=== PATIENT | female | born 1985 | race Caucasian/White ===

== ENCOUNTER 2022-03-21 14:16 | Outpatient (REF) | payer OTHER, SELFPAY ==
--- NOTE | ~2022-03-21 | XR_ITS ---
EXAMINATION: XR LUMBOSACRAL SPINE CLINICAL INFORMATION: Neck and back pain COMPARISON: None TECHNIQUE: Three views of the lumbosacral spine. FINDINGS: The vertebral bodies and posterior elements are normal. The disc spaces are preserved and the vertebral alignment is normal. The paraspinal soft tissues are normal. XR/XR lumbar spine 2-3V IMPRESSION: Unremarkable examination.
--- NOTE | ~2022-03-21 | XR_ITS ---
EXAMINATION: XR THORACIC SPINE CLINICAL INFORMATION: Neck and back pain COMPARISON: None TECHNIQUE: 3 views of the thoracic spine were obtained. FINDINGS: There is no fracture or bone destruction seen and the vertebral alignment is normal. There is no disc space narrowing. There is no abnormality of the paraspinal soft tissues. XR/XR thoracic spine 3V IMPRESSION: Unremarkable examination.
--- NOTE | ~2022-03-21 | XR_ITS ---
EXAMINATION: XR CERVICAL SPINE CLINICAL INFORMATION: Neck and back pain COMPARISON: None TECHNIQUE: 3 views of the cervical spine were obtained. FINDINGS: No fracture. No dislocation. There is reversal of the normal cervical lordosis. Mild loss of disc height with anterior osteophytosis C4-C5, C5-C6, and C6-C7. Normal prevertebral soft tissues. Lung apices clear. XR/XR cervical spine 3V IMPRESSION: Reversal of the normal cervical lordosis with multilevel degenerative disc disease.
[2022-03-21 15:36] LABS: Erythrocyte Sedimentation Rate 17 MM/HR (0-20)
== END 2022-03-21 14:17 | disposition home or self-care (01) ==
LOC: HO.LAB 14:16
PROVIDERS: PCP Internal Medicine; Visit Provider Internal Medicine
DX: M54.2 Cervicalgia (principal); M54.9 Dorsalgia, unspecified; V89.2XXD Person injured in unspecified motor-vehicle accident, traffic, subsequent encounter
CPT/HCPCS: 36415; 72040; 72072; 72100; 82550; 85652; 86140

== ENCOUNTER 2022-10-12 12:11 | Outpatient (REF) | payer OTHER, SELFPAY ==
[2022-10-12 13:30] LABS: MANUAL DIFF FLAG NO
[2022-10-12 13:39] LABS: Basophils Percent Auto 0.5 % (0-2); Eosinophils Absolute Auto 0.3 X10*3/uL (0.0-0.4); Eosinophils Percent Auto 4.1 % (0-4); Hematocrit 39.8 % (37.0-47.0); Hemoglobin 12.6 g/dl (12.0-16.0); Imm Gran Abs Auto 0.02 X10*3/uL (0.00-0.03); Imm Gran Pct Auto 0.2 % (0.0-0.4); Lymphocytes Absolute Auto 2.6 X10*3/uL (1.2-4.9); Lymphocytes Percent Auto 32.7 % (20-40); Mean Corpuscular HGB Conc 31.7 g/dl (31.0-35.0); Mean Corpuscular Volume 82.2 fL (80.0-98.0); Mean Platelet Volume 11.1 fL (9.4-12.3); Monocytes Absolute Auto 0.5 X10*3/uL (0.1-1.2); Monocytes Percent Auto 5.9 % (2-11); Neutrophils Absolute Auto 4.6 x10*3/uL (2.0-8.3); Neutrophils Percent Auto 56.6 % (45-73); Platelet Count 391 X10*3/uL (160-400); Red Blood Count 4.84 X10*6/uL (4.20-5.50); Red Cell Distribution Width 16.5 % (11.0-16.0); White Blood Count 8.1 X10*3/uL (4.8-10.8)
[2022-10-12 13:54] LABS: Rheumatoid Factor < 13.0 IU/mL (<15.0)
[2022-10-12 13:57] LABS: Alanine Aminotransferase 16 U/L (0-31); Albumin Level 4.2 g/dL (3.5-5.0); Alkaline Phosphatase 89 U/L (39-117); Anion Gap 13 (12-20); Aspartate Amino Transferase 16 U/L (5-31); Bilirubin Total 0.4 mg/dL (0.0-1.0); Blood Urea Nitrogen 14 mg/dL (9-16); Calcium 9.3 mg/dL (8.4-10.2); Carbon Dioxide 27 mmol/L (22-29); Chloride 105 mmol/L (96-108); Cholesterol 223 mg/dL; Estimated Glomerular Filt Rate > 60; Glucose Random 87 mg/dL (60-115); Potassium 3.9 mmol/L (3.3-5.1); Sodium 141 mmol/L (135-145); Total Protein 7.5 g/dL (6.5-8.0)
[2022-10-12 14:12] LABS: Vitamin D 25-OH Total 66.1 ng/mL (>30)
[2022-10-17 15:18] LABS: Anti Nuclear Antibody Screen NEGATIVE (NEGATIVE)
== END 2022-10-12 12:12 | disposition home or self-care (01) ==
LOC: HO.10HDL 12:11
PROVIDERS: Visit Provider Internal Medicine
DX: N18.9 Chronic kidney disease, unspecified (principal); J45.909 Unspecified asthma, uncomplicated; F98.8 Other specified behavioral and emotional disorders with onset usually occurring in childhood and adolescence; M25.50 Pain in unspecified joint
CPT/HCPCS: 36415; 80053; 82306; 82465; 85025; 86038; 86431

== ENCOUNTER 2024-05-23 10:44 | Outpatient (AMB) | payer OTHER, SELFPAY ==
[2024-05-23 10:50] VITALS: BP 126/88; PULSE 92; RESP 14; TEMP 36.6; O2SAT 98; BMI 38.4
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
--- OUTSIDE RECORDS SUMMARY | 2024-05-23 12:33 | XMS_ITS | Clinical Summary ---
Author Organization [facility] Address [address] [place] [phone] Phone Care Team Providers Care Piece Maker Name Role Phone Gustabo Weldon MD Primary Care Provider [phone] Allergies Active Allergy Reactions Criticality Noted Date Comments Aspirin Wheezing Medium 01/30/2024 Medications No known medications Active Problems No known active problems Social History Tobacco Use Types Packs/Day Years Used Date Smoking Tobacco: Never Smokeless Tobacco: Never Alcohol Use Standard Drinks/Week Comments Never 0 (1 standard drink = 0.6 oz pur e alcohol) Comments Unknown Sex and Gender Information Value Date Recorded Sex Assigned at Female 01/30/2024 6:09 PM EST Legal Sex Female 12:03 AM EST Gender Identity Female 01/30/2024 6:09 PM EST Sexual Orientation Not on file Obstetrics History Last Filed Vital Signs Vital Sign Reading Time Taken Comments Blood Pressure 144/97 01/30/2024 7:23 PM EST Pulse 92 01/30/2024 7:23 PM EST Temperature 37.6 ??C (99.7 ??F) 01/30/2024 5:33 PM ES T Respiratory Rate 18 01/30/2024 7:23 PM EST Oxygen Saturation 98% 01/30/2024 7:23 PM EST Inhaled Oxygen Concentration - - Weight 90.7 kg (200 lb) 01/30/2024 5:33 PM EST Height 157.5 cm (5' 2 ) 01/30/2024 5:33 PM EST Body Mass Index 36.58 01/30/2024 5:33 PM EST Plan of Treatment Health Maintenance Due Date Last Done Comments DTaP,Tdap,and Td Vaccines (1 - Tdap) 08/31/2003 Hepatitis B Vaccines (1 of 3 - 19+ 3-dose series) 08/31/2003 Cervical Cancer Screening: P ap Smear 2005 Depression Screening 02/06/2022 HIV Screening 02/06/2022 Hepatitis C Screening 02/06/2022 Medicare Annual Wellness Visit 02/06/2022 Social Influencers of Health Screening 02/06/2022 COVID-19 Vaccine (4 - 2023-2 5 season) 2023 01/25/2021, 06/10/2020, 05/12/2020 Influenza Vaccine (#1) 2023 , 01/12/2017 HIB Vaccines Aged Out No longer eligi ble based on patient's age to complete this topic HPV Vaccines Aged Out No longer eligi ble based on patient's age to complete this topic Hepatitis A Vaccines Aged Out No long er eligible based on patient's age to complete this topic IPV Vaccines Aged Out No longer eligi ble based on patient's age to complete this topic MMR Vaccines Aged Out No longer eligi ble based on patient's age to complete this topic Meningococcal ACWY Vaccine Aged Out N o longer eligible based on patient's age to complete this topic Meningococcal B Vacine Aged Out No lo nger eligible based on patient's age to complete this topic Pneumococcal Vaccine: Pediatrics (0 to 5 Years) and At-Risk Patients (6 to 64 Years) Aged Out No longer eligible b ased on patient's age to complete this topic RSV Immunization Patients Under 20 months Aged Out No longer eligible b ased on patient's age to complete this topic Varicella Vaccines Aged Out No longer eligible based on patient's age to complete this topic Additional Health Concerns Infection Onset Date Last Indicated Mycoplasma 01/30/2024 01/30/2024 Insurance [place]ICA[place] - [place] [employer] MEDICARE Care Teams Piece Maker Relationship Specialty Start Date End Date Gustabo Weldon MD [address] [place] [address] Dr Stefany [place] PCP - General Internal Medicine 10/27/20
== END 2024-05-23 11:13 | disposition home or self-care (01) ==
LOC: HO.HMCHD 10:44
PROVIDERS: PCP Internal Medicine; Visit Provider Internal Medicine
DX: F33.41 Major depressive disorder, recurrent, in partial remission (principal); R41.840 Attention and concentration deficit

== ENCOUNTER 2024-05-23 11:18 | Outpatient (REF) | payer MEDICARE, MEDICAID, SELFPAY ==
[2024-05-23 11:37] LABS: MANUAL DIFF FLAG NO
[2024-05-23 11:41] LABS: Basophils Absolute Auto 0.1 X10*3/uL (0.0-0.2); Eosinophils Absolute Auto 0.3 X10*3/uL (0.0-0.4); Eosinophils Percent Auto 4.4 % (0-4); Hematocrit 35.9 % (37.0-47.0); Hemoglobin 11.9 g/dl (12.0-16.0); Imm Gran Abs Auto 0.01 X10*3/uL (0.00-0.03); Imm Gran Pct Auto 0.2 % (0.0-0.4); Lymphocytes Absolute Auto 2.1 X10*3/uL (1.2-4.9); Mean Corpuscular HGB Conc 33.1 g/dl (31.0-35.0); Mean Corpuscular Hemoglobin 26.3 pg (27.0-33.0); Mean Corpuscular Volume 79.2 fL (80.0-98.0); Mean Platelet Volume 9.8 fL (9.4-12.3); Monocytes Absolute Auto 0.4 X10*3/uL (0.1-1.2); Monocytes Percent Auto 5.9 % (2-11); Neutrophils Absolute Auto 3.3 x10*3/uL (2.0-8.3); Neutrophils Percent Auto 54.5 % (45-73); Platelet Count 336 X10*3/uL (160-400); Red Blood Count 4.53 X10*6/uL (4.20-5.50); Red Cell Distribution Width 15.9 % (11.0-16.0); White Blood Count 6.1 X10*3/uL (4.8-10.8)
[2024-05-23 11:53] LABS: Estimated Average Glucose 108 mg/dL; Hemoglobin A1c % 5.4 % (<6.0)
[2024-05-23 12:21] LABS: Rheumatoid Factor < 13.0 IU/mL (<15.0)
[2024-05-23 12:26] LABS: Erythrocyte Sedimentation Rate 13 MM/HR (0-20)
[2024-05-23 12:33] LABS: Alanine Aminotransferase 21 U/L (0-31); Alkaline Phosphatase 85 U/L (39-117); Anion Gap 11 (12-20); Aspartate Amino Transferase 18 U/L (5-31); Bilirubin Total 0.2 mg/dL (0.0-1.0); Blood Urea Nitrogen 16 mg/dL (9-16); Calcium 8.8 mg/dL (8.4-10.2); Carbon Dioxide 27 mmol/L (22-29); Chloride 105 mmol/L (96-108); Estimated Glomerular Filt Rate > 60; Glucose Random 91 mg/dL (60-115); Iron 24 mcg/dL (30-160); Percent Iron Saturation 6 % (15-50); Potassium 3.6 mmol/L (3.3-5.1); Sodium 139 mmol/L (135-145); Total Iron Binding Capacity 376 mcg/dL (228-428); Total Protein 7.5 g/dL (6.5-8.0); Unsaturated Iron Binding 352 ug/dL
[2024-05-23 12:44] LABS: Vitamin B12 563 pg/mL (200-900)
[2024-05-24 19:09] LABS: Lyme Abs Screen <0.90 index
[2024-05-26 19:33] LABS: Cyclic Citrullinated Peptide <16 UNITS
[2024-05-27 11:04] LABS: Anti Nuclear Antibody Screen NEGATIVE (NEGATIVE)
[2024-05-28 16:08] LABS: Vitamin D 25-OH, D2 <4 ng/mL; Vitamin D 25-OH, D3 33 ng/mL; Vitamin D 25-OH, Total 33 ng/mL (30-100)
== END 2024-05-23 11:19 | disposition home or self-care (01) ==
LOC: HO.10HDL 11:18
PROVIDERS: Visit Provider Internal Medicine
DX: F33.41 Major depressive disorder, recurrent, in partial remission (principal); F41.9 Anxiety disorder, unspecified; F98.8 Other specified behavioral and emotional disorders with onset usually occurring in childhood and adolescence; R41.840 Attention and concentration deficit; R53.83 Other fatigue; M25.50 Pain in unspecified joint; L65.9 Nonscarring hair loss, unspecified; M79.10 Myalgia, unspecified site; Z79.899 Other long term (current) drug therapy
CPT/HCPCS: 36415; 80053; 82306; 82607; 83036; 83540; 85025; 85652; 86038; 86200; 86431; 86617; 86618; 99202

== ENCOUNTER 2024-08-05 11:45 | Outpatient (AMB) | payer MEDICARE, SELFPAY ==
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
[2024-08-05 11:50] VITALS: PULSE 97; RESP 16; TEMP 36.3; O2SAT 99; BMI 38.2
--- OUTSIDE RECORDS SUMMARY | 2024-08-05 13:00 | XMS_ITS | Clinical Summary ---
Author Organization [facility] Address [address] [place] [phone] Phone Care Team Providers Care Veterans' Counselor Name Role Phone Gustabo Weldon MD Primary Care Provider [phone] Allergies Active Allergy Reactions Criticality Noted Date [...] season) 2023 01/25/2021, 06/10/2020, 05/12/2020 Influenza Vaccine (Season Ended) 2024 01/07/2020, 01/12/2017 HIB Vaccines Aged Out No longer [...] age to complete this topic Meningococcal B Vaccine Aged Out No l onger eligible based on patient's age to complete [...] - [place] [employer] [place] Care Teams Veterans' Counselor Relationship Specialty Start Date End Date Gustabo Weldon MD [address] [place] [address] Dr Stefany MA PCP - General Internal Medicine 10/27/20
== END 2024-08-05 12:29 | disposition home or self-care (01) ==
LOC: HO.HMCHD 11:46
PROVIDERS: PCP Internal Medicine; Visit Provider Physician Assistant
DX: M54.2 Cervicalgia (principal); M54.9 Dorsalgia, unspecified; G89.29 Other chronic pain; R51.9 Headache, unspecified; E04.1 Nontoxic single thyroid nodule

== ENCOUNTER → 2024-08-05 11:45 | Outpatient (BNVA) | payer MEDICARE, SELFPAY | PROVIDERS: PCP Internal Medicine; Visit Provider Physician Assistant | DX: Z13.89 Encounter for screening for other disorder (principal) | CPT/HCPCS: 99212 ==

== ENCOUNTER 2024-08-05 12:34 | Outpatient (REF) | payer MEDICARE, SELFPAY ==
[2024-08-05 13:53] LABS: TSH reflex Free T4 3.69 uIU/mL (0.32-4.0)
== END 2024-08-05 12:35 | disposition home or self-care (01) ==
LOC: HO.10HDL 12:34
PROVIDERS: Visit Provider Physician Assistant
DX: E04.1 Nontoxic single thyroid nodule (principal)
CPT/HCPCS: 36415; 84443; 99212

== ENCOUNTER 2024-08-26 14:17 | Outpatient (AMB) | payer MEDICARE, SELFPAY ==
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
[2024-08-26 14:27] VITALS: BP 128/90; PULSE 96; RESP 16; TEMP 36.4; O2SAT 99; BMI 38.2
--- OUTSIDE RECORDS SUMMARY | 2024-08-26 15:51 | XMS_ITS | Clinical Summary ---
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
== END 2024-08-26 14:44 | disposition home or self-care (01) ==
LOC: HO.HMCHD 14:18
PROVIDERS: PCP Internal Medicine; Visit Provider Physician Assistant
DX: M54.2 Cervicalgia (principal)

== ENCOUNTER → 2024-08-26 14:17 | Outpatient (BNVA) | payer MEDICARE, SELFPAY | PROVIDERS: PCP Internal Medicine; Visit Provider Physician Assistant | DX: M54.2 Cervicalgia (principal); G89.29 Other chronic pain | CPT/HCPCS: 99212 ==

== ENCOUNTER 2024-09-05 16:00 | Outpatient (REF) | payer MEDICARE, SELFPAY ==
--- NOTE | ~2024-09-05 | US_ITS ---
EXAMINATION: US THYROID CLINICAL INFORMATION: Nontoxic single thyroid nodule COMPARISON: Ultrasound thyroid soft tissue neck 03/02/2015 TECHNIQUE: Linear transducer grayscale and color Doppler examination with attention to the region of the thyroid. FINDINGS: SIZE: Measurements of the thyroid lobes and nodules are given in sagittal, anteroposterior and transverse dimensions respectively. Right Thyroid Lobe: 3.7 x 1.2 x 1.3 cm, volume 2.9 mL. Previously measured 4.3 x 1.0 x 1.3 cm and volume 3.1 mL. Parenchyma: The gland echotexture is normal. Thyroid vascularity is normal. Left Thyroid Lobe: 4.0 x 1.3 x 1.3 cm, volume 3.5 mL. Previously measured 3.9 x 1.1 x 1.4 cm in volume 3.0 mL Parenchyma: The gland echotexture is normal. Thyroid vascularity is normal. Isthmus: 0.3 cm in maximum AP dimension. Previously measured 0.3 cm Estimated total number of nodules greater than or equal to 1 cm: None. Patrol Commander nodules are described as follows: 1. Location: Right mid pole. Size: 1.2 x 0.7 x 1.3 cm, volume 0.5 mL. Previous measurement 0.8 x 0.5 x 0.8 cm. Nodule characteristics: Composition: Solid (2). Echogenicity: Isoechoic (1). Shape: Wider Margins: Ill-defined (0). Echogenic Foci: Macrocalcification. ACR TI-RADS total points: 4 ACR TI-RADS category: 4 NODES: No lymphadenopathy is seen in the tissue surrounding the thyroid gland. US/US thyroid IMPRESSION: Solitary solid nodule right middle lobe increased in size since 2014. Based on ACR criteria recommend follow-up in 1 year. There are no new nodules. ACR TI-RADS RECOMMENDATION REFERENCE: Ultrasound-guided fine-needle aspiration, followup ultrasound, no further follow up. * TR1 (0 point) and TR2 (2 points): No FNA or follow up. * TR3 (3 points): FNA if more than or equal to 2.5 cm in maximum dimension, followup ultrasound in 1, 3 and 5 years if 1.5 to 2.4 cm in maximum dimension. * TR4 (4-6 points): FNA if more than or equal to 1.5 cm in maximum dimension, followup ultrasound in 1, 2, 3 and 5 years if 1 to 1.4 cm in maximum dimension. * TR5 (more than or equal to 7 points): FNA if more than or equal to 1 cm in maximum dimension, followup ultrasound every year for 5 years if 0.5 to 0.9 cm in maximum dimension. * TR3, TR4 or TR5 nodules that are below the size threshold for followup receive no follow up. Electronically signed by: Desmond Quinn MD 09/09/2024 07:45 AM EDT
--- OUTSIDE RECORDS SUMMARY | 2024-09-05 16:01 | XMS_ITS | Clinical Summary ---
Author Organization [facility] Address [address] [place] [id number] Phone Care Team Providers Care Rubber Washer Name Role Phone Gustabo Weldon MD Primary Care Provider [phone] Allergies Active Allergy Reactions Criticality Noted Date [...] Health Maintenance Due Date Last Done Comments Breast Cancer Screening 1984 DTaP,Tdap,and Td Vaccines (1 - Tdap) 08/31/2003 [...] - [place] [employer] [place] Care Teams Rubber Washer Relationship Specialty Start Date End Date Gustabo Weldon MD [address] [place] [address] Dr Stefany MA PCP - General Internal Medicine 10/27/20
== END 2024-09-05 16:01 | disposition home or self-care (01) ==
LOC: HO.US 16:00
PROVIDERS: PCP Internal Medicine; Visit Provider Physician Assistant
DX: E04.1 Nontoxic single thyroid nodule (principal)
CPT/HCPCS: 76536

== ENCOUNTER → 2024-09-05 16:01 | Outpatient (BNV) | payer MEDICARE, SELFPAY | PROVIDERS: PCP Internal Medicine; Visit Provider Radiology Diagnostic Radiology | DX: E04.1 Nontoxic single thyroid nodule (principal) | CPT/HCPCS: 76536 ==

== ENCOUNTER 2025-02-06 10:48 | Outpatient (AMB) | payer MEDICARE, SELFPAY ==
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
[2025-02-06 10:57] VITALS: BP 116/74; BMI 37.5
--- OUTSIDE RECORDS SUMMARY | 2025-02-06 13:34 | XMS_ITS ---
Author Name [facility] Organization Unknown Encounters Encounter Type Encounter Reason Primary Diagnosis Location Date [facility] Care Team Organization Name Specialty Phone Email Start Date End [facility]
--- OUTSIDE RECORDS SUMMARY | 2025-02-06 13:34 | XMS_ITS | Clinical Summary ---
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 [address] [place] [address] Acute pharyngitis, unspecified etiology (Primary Dx); Upper respiratory tract infection, unspecified type Discharge Disposition: Home or Self Care from Last 3 Months Medical History Medical History Date Comments Depression Anxiety Chronic pain Social History Tobacco Use Types Packs/Day Years [...] Sign Reading Time Taken Comments Blood Pressure 132/77 12/31/2024 10:29 AM EDT Pulse 103 12/31/2024 10:29 AM EDT Temperature 37.3 C (99.1 F) 12/31/2024 10:29 AM EDT Respiratory Rate 18 12/31/2024 10:29 AM EDT Oxygen Saturation 99% 12/31/2024 10:29 AM EDT Inhaled Oxygen Concentration - - Weight 90.7 kg (200 lb) 12/31/2024 10:29 AM EDT Height 157.5 cm (5' 2 ) 12/31/2024 10:29 AM EDT Body Mass Index 36.58 12/31/2024 10:29 AM EDT Plan of Treatment Health Maintenance Due Date Last Done Comments Breast Cancer Screening 1984 DTaP,Tdap,and Td Vaccines (1 - Tdap) 08/31/2003 Hepatitis B Vaccines (1 of 3 - 19+ 3-dose series) 08/31/2003 Cervical Cancer Screening: P ap Smear 2005 HPV Vaccines (1 - 3-dose SCD M series) 08/31/2011 HIV Screening 02/06/2022 Hepatitis C Screening 02/06/2022 Social Influencers of Health Screening 02/06/2022 Depression Screening 03/06/2024 COVID-19 Vaccine (4 - 2024-2 6 season) 2024 01/25/2021, 06/10/2020, 05/12/2020 Influenza Vaccine (#1) 2024 , 01/12/2017 RSV Immunization Adult Patients (1 - 1-dose 75+ series) 08/31/2059 HIB Vaccines Aged Out No longer eligi [...] 5 Years) and At-Risk Patients (6 to 49 Years) Aged Out No longer eligible b ased on patient's age to complete this topic RSV Immunization Patients Under 20 months Aged Out No longer eligible b ased on patient's age to complete this topic Varicella Vaccines Aged Out No longer eligible based on patient's age to complete this topic Procedures Procedure Name Priority Date/Time Associated Diagnosis Comments CULTURE THROAT STAT 12/31/2024 11:04 AM EDT RAPID STREP A SCREEN STAT 12/31/2024 11:04 AM EDT RESPIRATORY VIRUS PANEL MOLECULAR STUDY STAT 12/31/2024 11:04 AM EDT from Last 3 Months Results * Respiratory virus panel molecular study (12/31/2024 11:04 AM EDT) Pathologist [facility] Adenovirus Detection by PCR Not Detected Not Detected LAB MICROBIOLOGY METHOD 12/31/2024 12:42 PM EDT [facility] Influenza A PCR Not Detected Not Detected LAB MICROBIOLOGY METHOD 12/31/2024 12:42 PM EDT [facility] Influenza B PCR Not Detected Not Detected LAB MICROBIOLOGY METHOD 12/31/2024 12:42 PM EDT [facility] Coronavirus 229E Not Detected Not Detected LAB MICROBIOLOGY METHOD 12/31/2024 12:42 PM EDT [facility] Coronavirus HKU1 Not Detected Not Detected LAB MICROBIOLOGY METHOD 12/31/2024 12:42 PM EDT [facility] Coronavirus OC43 Not Detected Not Detected LAB MICROBIOLOGY METHOD 12/31/2024 12:42 PM EDT [facility] Coronavirus NL63 Not Detected Not Detected LAB MICROBIOLOGY METHOD 12/31/2024 12:42 PM EDT [facility] Parainfluenza Virus 1 Not Detected Not Detected LAB MICROBIOLOGY METHOD 12/31/2024 12:42 PM EDT [facility] Parainfluenza Virus 2 Not Detected Not Detected LAB MICROBIOLOGY METHOD 12/31/2024 12:42 PM EDT [facility] Parainfluenza Virus 3 Not Detected Not Detected LAB MICROBIOLOGY METHOD 12/31/2024 12:42 PM EDT [facility] Parainfluenza Virus 4 Not Detected Not Detected LAB MICROBIOLOGY METHOD 12/31/2024 12:42 PM EDT [facility] RSV PCR Not Detected Not Detected LAB MICROBIOLOGY METHOD 12/31/2024 12:42 PM EDT [facility] Human Metapneumovirus A and B Not Detected Not Detected LAB MICROBIOLOGY METHOD 12/31/2024 12:42 PM EDT [facility] Rhinovirus/Entero virus Not Detected Not Detected LAB MICROBIOLOGY METHOD 12/31/2024 12:42 PM EDT [facility] Bordetella pertussis Not Detected Not Detected LAB MICROBIOLOGY METHOD 12/31/2024 12:42 PM EDT [facility] Bordetella parapertussis Not Detected Not Detected LAB MICROBIOLOGY METHOD 12/31/2024 12:42 PM EDT [facility] Mycoplasma pneumo by PCR Not Detected Not Detected LAB MICROBIOLOGY METHOD 12/31/2024 12:42 PM EDT [facility] Chlamydia pneumoniae Not Detected Not Detected LAB MICROBIOLOGY METHOD 12/31/2024 12:42 PM EDT [facility] SARS COV-2 Not Detected Not Detected LAB MICROBIOLOGY METHOD 12/31/2024 12:42 PM EDT [facility] Swab Both anterior nares / Unknown Non-blood Collection / Unknown 12/31/2024 11:04 AM EDT 12/31/2024 11:40 AM EDT Narrative [facility] - 12/31/2024 12:42 PM EDT Testing was performed using the [employer] Global Respiratory Pathogen PCR Assay. All results must be correlated with the clinical findings. Results should not be used as the sole basis for diagnosis. False Negative results may occur from the presence of sequence variants in the region targeted by the assay or the presence of inhibitors. Results may be affected by concurrent antiviral/antimicrobial therapy or levels of organisms that are below the limit of detection. us Luna Parra NP LAB MICROBIOLOGY - GENERA L ORDERABLES Final Result [facility] [address] [place] [address], [place] [phone] * Rapid strep A screen (12/31/2024 11:04 AM EDT) Strep A Ag Negative Negative, Invalid 12/31/2024 12:05 PM EDT [facility] Comment:Refer to Throat Cult ure. Swab Structure of anterior region of neck / Unknown Non-blood Collection / Unknown 12/31/2024 11:04 AM EDT 12/31/2024 11:40 AM EDT Luna Parra NP LAB MICROBIOLOGY - GENERA L ORDERABLES Final Result [facility] [address] [place] [address], [place] [phone] * Culture throat (12/31/2024 11:04 AM EDT) Culture, Throat No pathogens isolated. 01/02/2025 11:09 AM EDT [facility] Swab Structure of anterior region of neck / Unknown Non-blood Collection / Unknown 12/31/2024 11:04 AM EDT 12/31/2024 11:40 AM EDT Luna Parra NP LAB MICROBIOLOGY - GENERA L ORDERABLES Final Result Performing Organization Address City/[facility]/ZIP Co de Phone Number [facility] [address] [place] [address], [place] [phone] from Last 3 Months Additional Health Concerns Infection Onset Date Last Indicated Mycoplasma 01/30/2024 01/30/2024 Insurance MEDICAID - [place] [facility] [place] [place] [id number] Care Teams Wheat Grower Relationship Specialty Start Date End Date Gustabo Weldon MD [address] [place] [address] Dr Stefany [place] PCP - General Internal Medicine 10/27/20
== END 2025-02-06 12:13 | disposition home or self-care (01) ==
LOC: HO.HWS 10:49
PROVIDERS: PCP Internal Medicine; Visit Provider Advanced Practice Midwife
DX: Z01.419 Encounter for gynecological examination (general) (routine) without abnormal findings (principal); N93.9 Abnormal uterine and vaginal bleeding, unspecified
CPT/HCPCS: 99203; 99386; 99459

== ENCOUNTER 2025-02-06 10:48 | Outpatient (REF) | payer MEDICARE, SELFPAY ==
[2025-02-06 23:57] LABS: Bacterial Vaginosis PCR NEGATIVE (Negative); Candida Group PCR DETECTED (Not Detect); Candida glab krusei PCR NOT DETECTED (Not Detect); Trichomonas vaginalis PCR NOT DETECTED (Not Detect)
[2025-02-07 00:29] LABS: CT PCR NOT DETECTED (Not Detect.); NG PCR NOT DETECTED (Not Detect.)
== END 2025-02-06 10:49 | disposition home or self-care (01) ==
LOC: HO.LNP 10:48
PROVIDERS: PCP Internal Medicine; Visit Provider Advanced Practice Midwife
DX: Z01.419 Encounter for gynecological examination (general) (routine) without abnormal findings (principal); Z20.2 Contact with and (suspected) exposure to infections with a predominantly sexual mode of transmission; Z11.51 Encounter for screening for human papillomavirus (HPV); N93.9 Abnormal uterine and vaginal bleeding, unspecified
CPT/HCPCS: 36415; 81515; 85027; 87491; 87591; 87626; 88175

== ENCOUNTER 2025-02-10 09:35 | Outpatient (AMB) | payer MEDICARE, SELFPAY ==
--- NOTE | 2025-02-10 09:42 | MHC.PC.OV ---
Vital Signs 02/10/25 09:47 Height 5 ft 2 in Weight 89.074 kg BMI 35.9 BP 120/90 H Respiration 16 Pulse 108 H Pulse Source Pulse Oximeter Temp 97.9 F Temp Source Temporal Artery Scan Pulse Oximetry (%) 98 Oxygen Delivery Method Room Air Intake Visit Reasons: Physical - see comments Battery Tester Field Required: No Accompanied by: Self / Same As Patient Allergies cat dander (CATS) Allergy (Intermediate, Unverified 02/10/25 09:42) RUNNY ITCHY EYES, DYSPNIA Rabbit (RABBITS) Allergy (Intermediate, Unverified 02/10/25 09:42) RUNNY ITCHY EYES, DYSPNIA aspirin Allergy (Mild, Verified 02/10/25 09:42) Wheezing nut - unspecified (nut) Allergy (Mild, Unverified 02/10/25 09:42) MOUTH SWELLING/STINGING OF MOUTH Environmental Allergy (Intermediate, Uncoded 02/10/25 09:42) SEASONAL/TREES/POLLEN - DYSPNEA/SOB FRUIT Allergy (Intermediate, Uncoded 02/10/25 09:42) MOUTH/SWELLING STINGING Medication List - Last Reconciled 02/10/25 by ADY Molina ascorbic acid (vitamin C) 250 mg PO DAILY cholecalciferol (vitamin D3) 50 mcg PO DAILY cyclobenzaprine 10 mg PO TID PRN dextroamphetamine-amphetamine 15 mg 1 tab PO BID 60 days duloxetine 60 mg PO DAILY ferrous sulfate 325 mg PO DAILY fluconazole 150 mg PO Q3D 2 doses fluoxetine 40 mg PO DAILY [id number] ac-collagen 200 mcg- 25 mg (Women's Multivitamin with Collagen) tabs PO Tobacco use date assessed: 05/23/24 Dental Screening Dental Screen Date: 05/23/24 HPI HPI Comments History of Present Illness Details 38 year old female with history of thyroid nodule, ADHD, depression, and chronic pain presents to the office today for annual physical exam. She currently lives by herself in an apartment any segmental. 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 Denies any alcohol use. No history of cigarette smoking. No illicit drug use or marijuana smoking. She does try to follow a healthy diet. No formal exercise secondary to chronic pain. Chronic pain- since then has been experiencing chronic daily headaches located in the occipital aspect of the scalp radiating into the neck bilaterally, down the thoracic and lumbar spine bilaterally and occasionally radiating into the bilateral legs. No weakness or paresthesias. Has been using duloxetine 60 mg daily with good effect, primarily in the lower extremities. Also using ibuprofen as needed and goes to the chiropractor. Has upcoming appointment with [facility] tomorrow Chronic daily headaches- ?r/t cervicalgia. On duloxetine, ibuprofen. Goes to chiropractor q3w Obesity- BMI 35.9 ADHD/Depression- duloxetine 60 mg daily, fluoxetine 40 mg daily. Adderall 15 mg twice daily. Stable overall but having some difficulty given significant stress in her family Was referred to pain management in [place] bt insurance would not cover this. Looking for local referral. Does feel some improvement with duloxetine. waist down Concerns: Micheline noted in recent labs from J[facility] LITHOGRAPHER- denies any abnormal discharge, pain or pruritus. Does report chronic discharge however. Negative for gonorrhea/chlamydia Health Maintenance: Seen by JOB LITHOGRAPHER 02/06- pap performed Mammogram ordered Colonoscopy to started age 44 Wears corrective lenses-eye exam is up-to-date Dental exams twice yearly Reviewed past medical, surgical, family, social history ROS: General: No fevers, malaise, unintentional weight loss HEENT: No blurred vision, diplopia. No sore throat, nasal congestion, rhinorrhea, sinus pain, ear pain. No hearing loss Neck - no adenopathy Cardiovascular: No chest pain, palpitations, or leg edema Respiratory: No shortness of breath, wheezing, cough Breast: No pain, palpable lumps, nipple inversion GI: No dysphagia, odynophagia, globus sensation. No abdominal pain, nausea, vomiting, diarrhea, constipation, melena, hematochezia : No dysuria, hematuria, increased urinary frequency, decreased urinary output. JOB LITHOGRAPHER: No abn vaginal bleeding or discharge MSK: No myalgia, back pain, arthralgias Neuro: No headaches, weakness, paresthesias Psych: no depression/anxiery. No AH/VH. No SI/HI Skin: No rashes or lesions EXAM: Constitutional - Awake and Alert, No apparent distress Eyes - PERRLA, EOMI. Anicteric Ears - external ears normal, canals clear, TMs intact and pearly cardoso with good cone of light Nose- septum midline, nares clear, no sinus tenderness Mouth/throat- mucosa moist, tongue and uvula midline, no erythema/edema or tonsillar adenopathy. Neck-trachea midline, thyroid symmetric without palpable nodules, no adenopathy Cardiovascular - S1S2, RRR, No edema Respiratory - Normal lung expansion, Normal respiratory effort, No respiratory distress, CTA bilaterally Gastrointestinal - NT / ND; +BS; No rebound or guarding - No CVA tenderness Extremities - no calf tenderness bilaterally, no swelling Musculoskeletal - Normal inspection, normal ROM Skin - Warm/Dry, no concerning lesions Neurological - Alert & oriented x3, CN II-XII in tact, 5/5 strength BUE and BLE, 2+ patellar reflexes, sensation intact Psychological - Appropriate affect COUNT INCLUDES [facility] Medical History Abnormal uterine bleeding (AUB) Cyst (solitary) of breast Abnormal anxiety related behavior Thyroid nodule Surgical History No pertinent past surgical history Family History Father Alcoholism Mother Anxiety High blood pressure Social History Housing: Apartment Alcohol intake: current Alcohol intake frequency: does not drink Patient Tobacco Use Status: Former Tobacco user service: No Current occupational status: disabled Cognitive needs: No Hearing needs: No Vision needs: Yes (rx glasses) Female Reproductive History Menstrual Age of Menarche: 9 Physical exam (Primary Care) Vital Signs: Last Vital Signs Temp 97.9 F 02/10/25 09:47 Pulse 108 H 02/10/25 09:47 Resp 16 02/10/25 09:47 BP 120/90 H 02/10/25 09:47 Pulse Ox 98 02/10/25 09:47 Oxygen Delivery Method Room Air 02/10/25 09:47 BMI result Body Mass Index 35.9 Tobacco/Smoking Status: Tobacco use Status Tobacco use date assessed 05/23/24 02/10/25 09:44 Patient Tobacco Use Status Former Tobacco user 02/10/25 09:44 Coding Level of Care Code Est Pt Level 4 (80652) New Pt Prev Care 40-64y(82215) Diagnoses Routine medical exam Z00.00 Chronic back pain M54.9; G89.29 Cervicalgia M54.2 Chronic headaches R51.9; G89.29 Recurrent major depressive disorder, in partial remission F33.41 Depression Type: major depressive disorder Major depression recurrence: recurrent Active/Remission status: in partial remission Attention or concentration deficit R41.840 Attention deficit type: attention or concentration deficit Assessment & Plan Assessment & Plan (1) Routine medical exam: Code(s): Z00.00 - Encounter for general adult medical examination without abnormal findings Category: Medical Plan: 39-year-old female presenting for annual exam. Plan as below (2) Chronic back pain: Comment: Upcoming appointment with [facility]. Continue cyclobenzaprine, duloxetine. Continue with chiropractic Code(s): M54.9 - Dorsalgia, unspecified; G89.29 - Other chronic pain Category: Medical Plan: Seems to be having good response to duloxetine. Continue fluoxetine 60 mg daily. Follow-up with chiropractor as scheduled. Follow-up with [facility] tomorrow as scheduled (3) Cervicalgia: Comment: Upcoming appointment with [facility]. Continue cyclobenzaprine, duloxetine. Continue with chiropractic Code(s): M54.2 - Cervicalgia Category: Medical Plan: As above (4) Chronic headaches: Comment: Upcoming appointment with [facility]. Continue cyclobenzaprine, duloxetine. Continue with chiropractic Code(s): R51.9 - Headache, unspecified; G89.29 - Other chronic pain Category: Medical Plan: As above (5) Depression: Comment: Well-controlled on duloxetine, fluoxetine Code(s): F32.A - Depression, unspecified Category: Medical Qualifiers: Depression Type: major depressive disorder Major depression recurrence: recurrent Active/Remission status: in partial remission Qualified Code(s): F33.41 - Major depressive disorder, recurrent, in partial remission Plan: Overall controlled with increased home stress. Continue duloxetine 60 mg daily, fluoxetine 40 mg daily (6) ADD (attention deficit disorder): Code(s): F98.8 - Other specified behavioral and emotional disorders with onset usually occurring in childhood and adolescence Category: Medical Qualifiers: Attention deficit type: attention or concentration deficit Qualified Code(s): R41.840 - Attention and concentration deficit Plan: Continue Adderall 50 mg twice daily Plan Routine screening labs as ordered below Continue with screening mammograms, Pap smears. Colonoscopies to start at age 45 Continue following for annual skin exams and use sun protection Annual eye exams Dental g twice yearly Wear seat belt in car Recommend regular exercise and healthy diet Follow-up in 6 months Reviewed labs from windshield repair technician. Fluconazole prescribed for a yeast infection Orders: Orders Hemoglobin A1c Today Z00.00 - Encounter for general adult medical examination without abnormal findings Complete Blood Count Auto Diff Today Z00.00 - Encounter for general adult medical examination without abnormal findings Basic Metabolic Panel Today Z00.00 - Encounter for general adult medical examination without abnormal findings Lipid Panel Today Z00.00 - Encounter for general adult medical examination without abnormal findings Liver Panel Today Z00.00 - Encounter for general adult medical examination without abnormal findings Medications: New fluconazole may repeat second dose 72 hrs after first dose if symptoms persist 150 mg PO Q3D 2 tabs 0RF 2 doses
[2025-02-10 09:47] VITALS: BP 120/90; PULSE 108; RESP 16; TEMP 36.6; O2SAT 98; BMI 35.9
== END 2025-02-10 10:18 | disposition home or self-care (01) ==
LOC: HO.HMCHD 09:35
PROVIDERS: PCP Physician Assistant; Visit Provider Physician Assistant
DX: Z00.00 Encounter for general adult medical examination without abnormal findings (principal); M54.9 Dorsalgia, unspecified; G89.29 Other chronic pain; M54.2 Cervicalgia; R51.9 Headache, unspecified; F33.41 Major depressive disorder, recurrent, in partial remission; R41.840 Attention and concentration deficit

== ENCOUNTER → 2025-02-10 09:35 | Outpatient (BNVA) | payer MEDICARE, SELFPAY | PROVIDERS: PCP Internal Medicine; Visit Provider Physician Assistant | DX: M54.9 Dorsalgia, unspecified (principal); G89.29 Other chronic pain; M54.2 Cervicalgia; R51.9 Headache, unspecified; F33.41 Major depressive disorder, recurrent, in partial remission; R41.840 Attention and concentration deficit | CPT/HCPCS: 99212; 99396 ==

== ENCOUNTER 2025-02-10 10:28 | Outpatient (REF) | payer MEDICARE, SELFPAY ==
[2025-02-10 10:57] LABS: MANUAL DIFF FLAG NO
[2025-02-10 11:19] LABS: Hematocrit 37.6 % (37.0-47.0); Hemoglobin 12.0 g/dl (12.0-16.0); Imm Gran Abs Auto 0.04 X10*3/uL (0.00-0.03); Imm Gran Pct Auto 0.4 % (0.0-0.4); Lymphocytes Absolute Auto 2.5 X10*3/uL (1.2-4.9); Mean Corpuscular HGB Conc 31.9 g/dl (31.0-35.0); Mean Corpuscular Hemoglobin 26.5 pg (27.0-33.0); Mean Corpuscular Volume 83.0 fL (80.0-98.0); NRBC Abs Auto 0.000 X10*3/uL (0.0-0.012); NRBC Pct Auto 0.0 /100WBC (0.0-0.2); Platelet Count 344 X10*3/uL (160-400); Red Blood Count 4.53 X10*6/uL (4.20-5.50); White Blood Count 10.9 X10*3/uL (4.8-10.8)
[2025-02-10 11:57] LABS: Alanine Aminotransferase 23 U/L (0-31); Albumin Level 4.5 g/dL (3.5-5.0); Alkaline Phosphatase 93 U/L (39-117); Anion Gap 12 (12-20); Aspartate Amino Transferase 23 U/L (5-31); Blood Urea Nitrogen 18 mg/dL (9-16); Calcium 9.0 mg/dL (8.4-10.2); Carbon Dioxide 28 mmol/L (22-29); Chloride 105 mmol/L (96-108); Cholesterol 214 mg/dL (<200); Estimated Glomerular Filt Rate > 60; HDL Cholesterol 48 mg/dL (>40); Potassium 3.8 mmol/L (3.3-5.1); Sodium 141 mmol/L (135-145); Total Protein 7.4 g/dL (6.5-8.0); Triglycerides 137 mg/dL (<150)
== END 2025-02-10 10:29 | disposition home or self-care (01) ==
LOC: HO.10HDL 10:28
PROVIDERS: Visit Provider Physician Assistant
DX: Z00.00 Encounter for general adult medical examination without abnormal findings (principal); Z13.1 Encounter for screening for diabetes mellitus; Z13.6 Encounter for screening for cardiovascular disorders; Z13.0 Encounter for screening for diseases of the blood and blood-forming organs and certain disorders involving the immune mechanism
CPT/HCPCS: 36415; 80048; 80061; 80076; 83036; 85025